=== PATIENT | male | born 1935 | race Caucasian/White ===

== ENCOUNTER 2018-09-22 16:07 | Emergency (ER) | payer MEDICARE, BC ==
[2018-09-22 16:28] VITALS: BP 197/92
--- NOTE | 2018-09-22 16:31 | UC ---
Head Injury HPI - HPI Summary HPI Summary: 83 yo male presents s/p fall. He tells me that he is very active and likes to run almost daily. Today he was running and he went to stop by planting his right foot in front of him. Says it right leg gave out and he fell forward onto the ground with his hands outstretched. He did hit his face against the ground. No LOC. Immediately got to his feet and returned home. He sustained abrasions to his hands, upper lip, and left cheek. He had moderate pain at the time, but says he's feeling better now. He has not taken anything OTC for his pain and says that he does not like to take medications. He denies headache, dizziness, pain with eye movement, abdominal pain, n/v, or weakness. - History Of Current Complaint Chief Complaint: UCTrauma Stated Complaint: INJURY FALL Time Seen by Provider: 09/22/18 16:20 Hx Obtained From: Patient Onset/Duration: Sudden Onset Severity Currently: Mild Severity Initially: Moderate Pain Intensity: 6 Pain Scale Used: 0-10 Numeric - Allergies/Home Medications Allergies/Adverse Reactions: Allergies Allergy/AdvReac Type Severity Reaction Status Date / Time No Known Allergies Allergy Verified 09/22/18 16:28 Home Medications: Home Medications NK [No Home Medications Reported] 09/22/18 [History Confirmed 09/22/18] PMH/Surg Hx/FS Hx/Imm Hx Cardiovascular History: Hypertension - Surgical History Surgical History: Yes Surgery Procedure, Year, and Place: right hip - Family History Known Family History: Positive: Hypertension, Other - no family history related to present concern. - Social History Lives: With Family Alcohol Use: Occasionally Substance Use Type: None Smoking Status (MU): Never Smoked Tobacco - Immunization History Most Recent Influenza Vaccination: None Most Recent Tetanus Shot: UTD Most Recent Pneumonia Vaccination: None Review of Systems All Other Systems Reviewed And Are Negative: Yes Constitutional: Positive: Negative Skin: Positive: Other - Abrasions Eyes: Positive: Negative Respiratory: Positive: Negative Cardiovascular: Positive: Negative Gastrointestinal: Positive: Negative Neurovascular: Positive: Negative Neurological: Positive: Negative Psychological: Positive: Negative Physical Exam - Summary Physical Exam Summary: GENERAL: NAD. WDWN. No pain distress. SKIN: Right hand: Superficial abrasion to 3rd and 4th finger pads. Left hand: superficial abrasion to dorsal and volar hand. Face: Upper lip with superficial abrasion and moderate edema. No laceration or tooth fracture. Left maxillary with mild edema and superficial abrasion. Mild TTP. HEENT: Head: No raccoon eyes or battles sign. Eyes: PERRLA. EOM intact and without pain. Ears: Hearing grossly normal. TMs intact, no bulging, erythema, or edema. No hemotympanum Nose: Nasal mucosa pink and moist. NTTP maxillary and frontal sinus. Throat: Posterior oropharynx without exudates, erythema, or tonsillar enlargement. Uvula midline. NECK: Supple. Nontender. FROM CHEST: CTAB. No r/r/w. No accessory muscle use. Breathing comfortably and in no distress. CV: RRR. Without m/r/g. Pulses intact. Brisk cap refill. MSK: FROM in B/L UEs and LEs with symmetric strength. NEURO: A&Ox3. 3 word recall, remote, recent memory, ability to follow 2-step directions, and attention intact. CN: II: Peripheral santiago intact. Vision normal. III, IV, : EOMI. No nystagmus. PERRLA. V: Sensations intact and symmetric. Opens mouth and clenches teeth. VII: No facial asymmetry. Forehead wrinkles. Grins, shuts eyes, frowns, puffs cheeks. VIII: Hearing intact to finger rub. IX, X: Swallows and coughs. Uvula midline. XI: Shrugs shoulders. Turns head against resistance. XII: No tongue deviation Yfyoca-me-twkg are intact. Gait with normal base. Romberg: maintains balance, no pronator drift. Normal speech. No facial drooping. PSYCH: Age appropriate behavior. Triage Information Reviewed: Yes Vital Signs: Initial Vital Signs Temp 98.9 F 09/22/18 16:20 Pulse 63 09/22/18 16:20 Resp 16 09/22/18 16:20 BP 197/92 09/22/18 16:20 Pulse Ox 96 09/22/18 16:20 Vital Signs Reviewed: Yes Head Injury Course/Dx - Course Course Of Treatment: Discussed obtaining CT maxillofacial today given that this is the only area of any significant pain, but pt declined. He does not want any imaging and request to have his wounds cleaned and bandaged. He did sustain a mild head injury, however his neuro exam is WNL and he is not on any blood thinners at this time. His wounds were cleaned and bandaged with neosporin and band-aids. I advised him to ice the areas of swelling/abrasions/pain and take tylenol for discomfort. If he develops a headache, dizziness, weakness, nausea, or vomiting to go to the ED. Pt voiced understanding - Differential Dx/Diagnosis Provider Diagnosis: Fall, Contusion of face, Multiple abrasions Discharge - Sign-Out/Discharge Documenting (check all that apply): Patient Departure All imaging exams completed and their final reports reviewed: No Studies - Discharge Plan Condition: Stable Disposition: HOME Patient Education Materials: Abrasion (ED), Hematoma (ED) Referrals: Elias Cristobal MD [Primary Care Provider] - Additional Instructions: If you develop a fever, shortness of breath, chest pain, new or worsening symptoms - please call your PCP or go to the ED. Your blood pressure was high at todays visit. Please see your primary provider within 4 weeks for recheck and re-evaluation. 1) Rest and apply ice to your areas of pain and swelling 2) You declined imaging of your areas of injury today - if your symptoms worsen please go to the ER - Billing Disposition and Condition Condition: STABLE Disposition: Home - Attestation Statements Provider Attestation: I was available for consult. This patient was seen by the JOYA. The patient was not presented to , seen by or examined by nd -Janelle Tay MD
== END 2018-09-22 17:23 | disposition home or self-care (01) ==
LOC: UCEAST 16:07
DX: S00.83XA Contusion of other part of head, initial encounter (principal); S60.414A Abrasion of right ring finger, initial encounter; S60.417A Abrasion of left little finger, initial encounter; S60.512A Abrasion of left hand, initial encounter; S00.511A Abrasion of lip, initial encounter; I10 Essential (primary) hypertension; W01.198A Fall on same level from slipping, tripping and stumbling with subsequent striking against other object, initial encounter; Y93.02 Activity, running; Y92.9 Unspecified place or not applicable
CPT/HCPCS: 99212; G0463

== ENCOUNTER 2019-04-08 09:59 | Inpatient (IN) | payer MEDICARE, BC ==
--- NOTE | 2019-04-08 10:27 | ED ---
Neurological HPI - HPI Summary HPI Summary: Time seen by provider: 1015. The patient is an 83 y/o M presenting to [facility] accompanied by with a chief complaint of weakness in the bilateral lower extremities as he woke up at 0730. He reports he was trying to get out of bed but had difficulty ambulating, and he had to use a walker, which is abnormal for him. He denies any headaches, chest pain, shortness of breath, or dizziness. Currently, his symptoms are rated 0/10 in severity. He notes that he does not have a history of high blood pressure, although in triage his pressure is hypertensive; he states it has been lower more recently. PMHx: right hip surgery. FHx: HTN, cardiac disease, MS fatal age 58, stroke (brother, grandfather). Former smoker, no EtOH, no substance use. Medications reviewed. Allergies noted. - History of Current Complaint Chief Complaint: EDWeakness Stated Complaint: WALKING DIFFICULTY WEAKNESS PER Time Seen by Provider: 04/08/19 10:15 Hx Obtained From: Patient Onset/Duration: Started hours ago - 0730 this morning, Still Present Timing: Sudden Onset Onset Severity: Moderate Current Severity: Moderate Neurological Deficit Location: RLE, LLE Pain Intensity: 0 Pain Scale Used: 0-10 Numeric Character: Weak - Allergy/Home Medications Allergies/Adverse Reactions: Allergies Allergy/AdvReac Type Severity Reaction Status Date / Time No Known Allergies Allergy Verified 04/08/19 10:11 PMH/Surg Hx/FS Hx/Imm Hx Endocrine/Hematology History: Denies: Hx Diabetes Cardiovascular History: Denies: Hx Hypercholesterolemia, Hx Hypertension - Surgical History Surgical History: Yes Surgery Procedure, Year, and Place: right hip Infectious Disease History: No Infectious Disease History: Denies: History Other Infectious Disease, Traveled Outside the [place] in Last 30 Days - Family History Known Family History: Positive: Cardiac Disease - MS grandfather age 58, Hypertension, Other - no family history related to present concern. - Social History Alcohol Use: Occasionally Hx Substance Use: No Substance Use Type: Reports: None Hx Tobacco Use: Yes Smoking Status (MU): Former Smoker Review of Systems Negative: Chest Pain Negative: Shortness Of Breath Neurological: Other - Negative: dizziness. Positive: Weakness - in bilateral legs. Negative: Headache All Other Systems Reviewed And Are Negative: Yes Physical Exam - Summary Physical Exam Summary: VITAL SIGNS: Reviewed. GENERAL: Patient is a well-developed and nourished elderly male who is lying comfortable in the stretcher. Patient is not in any acute respiratory distress. HEAD AND FACE: No signs of trauma. No ecchymosis, hematomas or skull depressions. No sinus tenderness. EYES: PERRLA, EOMI x 2, No injected conjunctiva, no nystagmus. EARS: Hearing grossly intact. Ear canals and tympanic membranes are within normal limits. MOUTH: Oropharynx within normal limits. NECK: Supple, trachea is midline, no adenopathy, no JVD, no carotid bruit, no c- spine tenderness, neck with full ROM. CHEST: Symmetric, no tenderness at palpation. LUNGS: Clear to auscultation bilaterally. No wheezing or crackles. CVS: Regular rate and rhythm, S1 and S2 present, no murmurs or gallops appreciated. ABDOMEN: Soft, non-tender. No signs of distention. No rebound, no guarding, and no masses palpated. Bowel sounds are normal. EXTREMITIES: FROM in all major joints, no edema, no cyanosis or clubbing. NEURO: Alert and oriented x 3. Left lower extremity weakness. Decreased sensation in the left leg. Speech is normal and follows commands. NIH: 2 (see scale). SKIN: Dry and warm. GCS: 15. Triage Information Reviewed: Yes Vital Signs On Initial Exam: Initial Vitals Temp Pulse Resp BP Pulse Ox 98.4 F 59 18 195/87 97 04/08/19 10:02 04/08/19 10:02 04/08/19 10:02 04/08/19 10:02 04/08/19 10:02 Vital Signs Reviewed: Yes - Rico Coma Scale Best Eye Response: 4 - Spontaneous Best Motor Response: 6 - Obeys Commands Best Verbal Response: 5 - Oriented Coma Scale Total: 15 Procedures - Sedation Patient Received Moderate/Deep Sedation with Procedure: No Diagnostics - Vital Signs Vital Signs Temp Pulse Resp BP Pulse Ox 04/08/19 10:02 98.4 F 59 18 195/87 97 - Laboratory Result Diagrams: 04/08/19 10:34 04/08/19 10:34 Lab Statement: Any lab studies that have been ordered have been reviewed, and results considered in the medical decision making process. - Radiology Brain MRI Radiology Interpretation Completed By: Radiologist Summary of Radiographic Findings: Impression: 1. There are two small late acute to early subacute white matter infarcts in the right parietal lobe. One is near the cortical spinal tract. The other is in the periatrial white matter. There is no associated mass effect or midline shift. 2. Moderate chronic small vessel slightly disease is likely. 3. Mild cerebral volume loss. ED physician has reviewed this report. Cervical Spine MRI Radiology Interpretation Completed By: Radiologist Summary of Radiographic Findings: Impression: 1. The cervical spinal cord is normal in signal and volume. 2. Varying degrees of multilevel spondylosis results in mild to moderate spinal canal stenosis at C2-C3 and multilevel neural foraminal stenosis as above. 3. There is osseous fusion of the C3-C4 vertebral bodies and facets. ED physician has reviewed this report. - CT Brain CT CT Interpretation Completed By: Radiologist Summary of CT Findings: Impression: No acute intracranial pathology. Chronic small vessel ischemic change. ED physician has reviewed this report. - EKG 1046 Cardiac Rate: Bradycardia - 59 bpm EKG Rhythm: Sinus Bradycardia EKG Comparison: No Significant Change - Similar to previous on 06/23/16. Summary of EKG Findings: EKG at 1046 reveals sinus bradycardia at [address] elevations. ED physician has reviewed and interpreted this EKG. NIH Scale - NIH Scale Level of Consciousness: Alert/Keenly Responsive Ask Patient the Month and His/Her Age: Both Correct Ask Pt to Open/Close Eyes and Shorer/Release Non-Paretic Hand: Both Correctly Best Gaze (Only Horizontal Eye Movement): Normal Visual Field Testing: No Visual Loss Facial Paresis-Pt to Smile & Close Eyes or Grimace Symmetry: Normal/Symmetrical Motor Function - Right Arm: No Drift-Holds 10 Seconds Motor Function - Left Arm: No Drift-Holds 10 Seconds Motor Function - Right Leg: No Drift-Holds 10 Seconds Motor Function - Left Leg: Drifts LT 10 seconds Limb Ataxia-Must be out of Proportion to Weakness Present: Absent Sensory (Use Pinprick to Test Arms/Legs/Trunk/Face): Pinprick Less on Affected Best Language (Describe Picture, Name Items): No Aphasia Dysarthria (Read Several Words): Normal Extinction and Inattention: No Abnormality Total Score: 2 Re-Evaluation - Re-Evaluation First Eval Re-Evaluation Time: 12:45 Change: Unchanged Comment: We discussed all results and plan for admission. Course/Dx - Course Assessment/Plan: Patient is an 83 y/o M with chief complaint of waking up with weakness in the bilateral lower extremities this morning at 0730 without any accompanying chest pain, shortness of breath, headache, or dizziness. Blood work without any significant abnormality. Urinalysis is negative for UTI. Head CT impression: No acute pathology. Since the patient woke up with the symptoms, the patient is not a candidate for TPA. I discussed my physical exam and findings with Dr. Kelly from the neurology services, and he came and assessed the patient. Dr. Kelly recommends for the patient to be admitted to the hospitalist and to get an MRI of the brain and MRI of the C-spine. At this time , I discussed my physical exam and findings with Dr. Roche from the hospitalist services who accepted the patient for admission. Patient is hemodynamically stable alert oriented 3. - Diagnoses Provider Diagnoses: CVA (cerebral vascular accident) - Physician Notifications Discussed Care Of Patient With: Ricci Kelly - neurology Time Discussed With Above Provider: 11:00 Instructed by Provider To: Other - I discussed the patient's case with Dr. Kelly, and he will come assess the patient in the ED. At 1218, Dr. Kelly spoke with the patient, and he reports that the patient is walking well. He recommends an MRI and admission. I discussed the patients case with Dr. Roche , who accepts the patient for admission at 1242. Discharge ED - Sign-Out/Discharge Documenting (check all that apply): Patient Departure - Patient accepted for admission by Dr. Roche. - Discharge Plan Condition: Stable Disposition: ADMITTED TO [facility] - Billing Disposition and Condition Condition: STABLE Disposition: Admitted to [facility] - Attestation Statements Document Initiated by Stephani: Yes Documenting Scribe: Patricia Gongora Provider For Whom Stephani is Documenting (Include Credential): Dr. Nahum Branch MD Scribe Attestation: Patricia Dixon scribed for Dr. Nahum Branch MD on 04/08/19 at 1852. Scribe Documentation Reviewed: Yes Provider Attestation: The documentation as recorded by the Patricia arizmendi accurately reflects the service I personally performed and the decisions made by me, Dr. Nahum Branch MD Status of Scribe Document: Ready
[2019-04-08 10:50] LABS: ABS Lymphocytes 1.4 10^3/ul (1.0-4.8); ABS Monocytes 0.4 10^3/ul (0-0.8); ABS Neutrophils 3.4 10^3/ul (1.5-7.7); Eosinophil % 0.8 %; Hematocrit 44 % (42-52); Hemoglobin 14.9 g/dL (14.0-18.0); Lymphocyte % 25.7 %; Mean Corpuscular HGB Conc 34 g/dL (31-36); Mean Corpuscular Hemoglobin 34 pg (27-31); Mean Corpuscular Volume 99 fL (80-94); Mean Platelet Volume 8.2 fL (7.4-10.4); Nucleated Red Blood Cells % 0.1; Platelet Count 238 10^3/uL (150-450); Red Blood Count 4.41 10^6 /uL (4.18-5.48); Red Cell Distribution Width 13 % (10-15); White Blood Count 5.3 10^3/uL (3.5-10.8)
[2019-04-08 11:00] LABS: Urine Appearance Clear; Urine Bilirubin Negative (Negative); Urine Blood Negative (Negative); Urine Color Straw; Urine Glucose Negative (Negative); Urine Ketones Negative (Negative); Urine Nitrite Negative (Negative); Urine Protein Negative (Negative); Urine Specific Gravity 1.008 (1.010-1.030); Urine Urobilinogen Negative (Negative)
[2019-04-08 11:02] LABS: Albumin/Globulin Ratio 1.6 (1-3); BUN/Creatinine Ratio 13.3 (8-20); Calcium 9.1 mg/dL (8.6-10.3); EGFR African American 119.8 (>60); Globulin 2.5 g/dL (2-4); HDL Cholesterol 60.7 mg/dL; Total Bilirubin 0.8 mg/dL (0.2-1.0); Total Protein 6.5 g/dL (6.4-8.9)
[2019-04-08 11:04] LABS: Troponin I 0.01 ng/mL (<0.04)
[2019-04-08] MEDS ORDERED: hydrALAZINE IV* 20 MG/ML VIAL IV SLOW PU ONE (11:05)
[2019-04-08 13:28] LABS: Folate 12.98 ng/mL (>3.99)
--- NOTE | 2019-04-08 15:00 | HP ---
History of Present Illness - History of Present Illness Reason for Visit: Bilateral Lower limb weakness History of Present Illness: This is a 83 y/o M otherwise healthy presented with Bilateral lower extremity weakness that started this morning. he woke up around 7:00 AM in the morning and noticed that he was not able to walk and had to use walker to walk around the house. He had no symptoms when he went to sleep yesterday night.Weakness was acute, constant, nonprogressive and with no radiation and numbness and tingling. He denies history of loss of consciousness, facial droop, slurring speech or drooling of saliva. He does report that his gait was unsteady. He further adds that he had fell twice in last 6 months when tripped on the floor. He is also noticing imbalance for the last 2-3 years. He reports of nocturia; goes to bathroom 2-3 times a night and adds that he drinks water alot, even while waking up at night. There is no burning micturition, dribbling or hesitancy. Patient denies recent upper respiratory tract infection, diarrhea, fever, nausea, vomiting, visual changes, syncope or tick bite. He has normal appetite with no weight changes and normal sleep habit. ER Course: In hospital, his weakness has subsided. His BP was in the range of 180-200/80- 100 mm Hg. His heart rate was in the range of 54-70 bpm. In ED, there was some sensory and motor weakness in his left leg. Blood work up was normal. Brain CT showed Chronic small vessel ischemic change with no acute intracranial abnormality. His ECG showed sinus bradycardia with borderline FL prolongation. - Past Medical History Past Medical History: 1. Scoliosis 2. Right Femoral Neck fracture No history of Hypertension, Diabetes, Heart disease, Hyperlipidemia or stroke. He doesnot use medication at home except ocassional Ibuprofen for his hip pain. - Past Surgical History Past Surgical History: 1. Right Hip Surgery with placement of cannulated screws 3 years ago - Past Family History Past Family History: His father had a Heart Disease and at age of 70 years. His paternal uncle at 58 yrs because of [place]. Grandfather because of heart disease. Mother at the age of 97 and had arthritis. His younger brother had small stroke when he was 75 years. he has 5 children and all of them are healthy. 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 He lives with his . He occasionally drinks wine; once in 3 months. He denies smoking and doesnot use recreational drugs. He has a living will. His HCP is his -Agatha Sims([phone]). Home phone number is [phone]. He doesnot have Primary care Physician at present. He is full code. - Health Maintenance Health Maintenance: Never had colonoscopy. Review of Systems - Review of Systems Genitourinary: Positive: Other - Nocturia Musculoskeletal: Positive: Neck Pain Neurological: Positive: Weakness - Medications/Allergies Allergies/Adverse Reactions: Allergies Allergy/AdvReac Type Severity Reaction Status Date / Time No Known Allergies Allergy Verified 04/08/19 10:11 Exam Vital Signs: Vital Signs (72 hours) 04/08/19 04/08/19 04/08/19 10:02 10:13 10:16 Temperature 98.4 F Pulse Rate 59 63 61 Respiratory 18 11 14 Rate Blood Pressure 195/87 196/113 (mmHg) O2 Sat by Pulse 97 97 96 Oximetry 04/08/19 04/08/19 04/08/19 10:17 10:31 10:37 Temperature Pulse Rate Respiratory 27 Rate Blood Pressure 194/110 200/80 (mmHg) O2 Sat by Pulse 96 Oximetry 04/08/19 04/08/19 04/08/19 11:00 11:40 12:00 Temperature Pulse Rate Respiratory 15 19 17 Rate Blood Pressure 183/102 (mmHg) O2 Sat by Pulse Oximetry 04/08/19 04/08/19 04/08/19 12:44 13:00 13:10 Temperature Pulse Rate 60 Respiratory 17 21 23 Rate Blood Pressure 162/83 161/92 (mmHg) O2 Sat by Pulse 96 Oximetry 04/08/19 04/08/19 04/08/19 13:40 14:00 14:10 Temperature Pulse Rate Respiratory 17 26 26 Rate Blood Pressure 161/93 160/87 (mmHg) O2 Sat by Pulse Oximetry Exam: Patient is lying in a bed with no acute distress. HEENT: Normocephalic and atraumatic. PERRLA. Sclera anicteric. EOM intact. Lungs: Normal respiratory rate. Clear vesicular sound heard with no added sound. Heart: Normal in rate and rhythm. S1/S2 heard with no murmur, rubs or gallop. Abdomen: Soft, nondistended and nontender. Normal bowel sound heard. Extremities: No edema, cyanosis and clubbing. Neuro: Alert, conscious and oriented. CN intact. Motor strength normal and sensation intact. Gait- limping. Assessment/Plan - Assessment/Plan Assessment: This is a pleasant 83 y/o M with no significant past medical history presented with acute onset of transient bilateral lower extremity weakness with no other associated symptom, concerning for CVA vs TIA, or spinal cord pathology. Plan: 1. Bilateral Lower Limb weakness: According to patient symptom, this could be due to due to spinal degenerative disease or peripheral neuropathy. We will do MRI of his spine. Other differentials include Brainstem Stroke(ordering MRI Brain), Undiagnosed Metastatic Cancer( his exposure to dioxin puts him on high risk for prostate cancer) or just dehydration. If MRI brain is normal then we will think about stopping his aspirin. Other possibilities include GBS, Tick Paralysis; although less likely. 2. Hypertension: His BP is in the range of 180/90mm Hg. He doesnot have PCP. So this could be undiagnosed Essential HTN or just stress induced, also would be present in a post stroke event, which is why we are electing for MRI. We will put him on Amlodipine for now. 3. DVT Prophylaxis: ON lovenox prophylactic dose. 4. Diet: Regular unrestricted diet. 5. Full Code Attestation Documenting Resident: Arlene Mckeon Supervising Physician: Kimmie Rojas Attending/Supervising Physician Comment: Agree with resident H/P Attending addendum 83M, healthy at baseline, who presented with acute onset weakness upon waking up this morning, associated w dizziness, symptoms resolved by the time he appeared in ED, though VS notable for HTN. Labs normal, imaging ultimately did reveal a subacute CVA, though luckily no residual defecit, he will be admitted to hospital wiht following problems #CVA: late acute, c/w "wake up stroke" type presentation -Out of window for TPA (4.5 hr) -Risk stratify w 2/2 prevention, Asa/Plavix for 30 days, shared decision making around statin -Echo w bubble, discuss carotid duplex vs MRA -PT/OT #HTN: Permissive HTN with systolic BPs 160s a goal #DVT lovenox #Code Full Attestation: This service has been performed in part by a resident under the direction of a teaching physician.I, Kimmie Rojas, performed the service, or was physically present during the critical, or marcelino portions of the service, furnished by the resident. I participated in the management of the patient.
--- NOTE | 2019-04-08 15:25 | CONS ---
CONSULTATION REPORT: DATE OF CONSULT: 04/08/19 PATIENT OF: Dr. Branch and Dr. Cristobal. HISTORY OF PRESENT ILLNESS: This is an 83-year-old right-handed man who I am seeing for an acute gait disturbance. He has been in good general health other than breaking his right hip with a fall almost 3 years ago. He notes that over the past year or so, he has had some progressive balance issues and uses a cane currently so he does not fall. He has fallen 2 to 3 times in the past year, the last about a month ago. He denies any numbness in his feet, but feels that he has a sensation of wooziness or off balance and he has no vertigo. He went to bed in his usual state of good health last night. He slept on his belly, which is unusual for him and he woke up with some neck pain and he had weakness in both legs without any numbness or bladder changes. No weakness in the arms. No visual symptoms, and he said he could almost not walk. It is unclear how severe this was. His walking was not tested when he first got into the emergency room and he feels that within hours it is back to essentially normal and he has no numbness. He has no headache, chest pain, shortness of breath. As discussed, he is on no meds. He is in good health and he had his hip surgery. SOCIAL HISTORY: He is a former smoker. He is and lives with his . REVIEW OF SYSTEMS: Negative in all 14 spheres PHYSICAL EXAM: Blood pressure 183/102, pulse 63, respirations 17, temperature 98.4. He is alert and oriented with normal speech and comprehension. Cranial nerves II through XII were intact. Fundi were benign. Motor exam revealed normal tone and strength with some atrophy and intrinsic hand muscles in both hands. He had an unsteady Romberg and his gait is slightly wide based. His left foot was externally rotated when he walked, but apparently this is how he walks. He did not appear in danger of falling with a walker and both he and his said that his walking was unchanged. His reflexes were trace at the ankles , 2+ at the knees, 1 in the arms. He had decreased vibration sense in his feet. Toes were downgoing. Chest: Clear. Cardiovascular: Regular rate and rhythm. Abdomen is soft. DIAGNOSTIC STUDIES/LAB DATA: CT of his head showed some diffuse hypodensities, which most likely represent small vessel ischemic disease and this was how the radiologist read it as well. Labs include normal CBC other than an MCV of 99. Normal INR. Normal chemistries. His B12 and folate pending. LDL is 108. IMPRESSION AND PLAN: I discussed with Mr. Sims and his that he most likely has a longstanding slowly progressive peripheral neuropathy, which caused him to use a cane and have some balance difficulties. In addition, he has had the acute problem that brought him to the ER today. He firmly says that it was both legs and he appears to be a good historian. Dr. Branch detected weakness in his left leg, which I did not see and it is resolved at this point. He is not a candidate for tPA because he is back to his baseline and it was a wake-up stroke and it passed. He is outside of any window at this point. I think that the acute event may be more likely to be from a cervical myelopathy from sleeping on his belly. He has scoliosis and has intrinsic muscle wasting in his hands and possibly some brisk reflexes in his legs, and so we are getting an MRI scan of his C-spine. It is possible that this could have been an acute stroke that has resolved. This would be important to know as well and so we are getting an MRI scan of his brain. I think that this is less likely of the 2 possibilities since he firmly states that both legs were affected by this thing, but at this point it is hard to be sure which of these 2 possibilities occurred. He will be recommended B12, folate, hemoglobin A1c, thyroid, and we may be getting nerve conduction studies at some point as well. Thank you for sharing his case. [id number]/[facility] #: [id number] KETURAH
[2019-04-08] MEDS ORDERED: Clopidogrel TAB* 300 MG PO ONE (17:59)
[2019-04-08] MEDS ORDERED: Clopidogrel TAB* 75 MG PO SCH (18:00)
[2019-04-08] MEDS: Aspirin 81 mg CHEW TAB* 81 MG TAB.CHEW PO SCH (18:21)
[2019-04-08] MEDS: amLODIPine TAB* 5 MG PO SCH (18:22)
[2019-04-08] MEDS: Enoxaparin(*) 40 MG/0.4 ML SYR SUBCUT SCH (18:24)
--- NOTE | 2019-04-09 06:57 | PN ---
Subjective Date of Service: 04/09/19 Interval History: HD 2 on 04/09/2019 83 y/o M with no significant PMH presented with acute transient bilateral lower extremity weakness with unsteady gait. Found to have Stroke. On aspirin and Plavix No acute overnight events pt declined lovenox vitals stable No complain at present AMbulating well Objective Active Medications: Amlodipine Besylate (Norvasc Tab*) 10 mg PO DAILY [facility] Last Admin: 04/08/19 18:22 Dose: 10 mg Aspirin (Aspirin 81 Mg Chew Tab*) 81 mg PO DAILY [facility] Last Admin: 04/08/19 18:21 Dose: 81 mg Clopidogrel Bisulfate (Plavix Tab*) 75 mg PO DAILY [facility] Enoxaparin Sodium (Lovenox(*)) 40 mg SUBCUT Q24H [facility] Last Admin: 04/08/19 18:24 Dose: Not Given Vital Signs - 8 hr 04/08/19 04/09/19 23:45 03:31 Temperature 97.7 F 97.8 F Pulse Rate 61 59 Respiratory 20 20 Rate Blood Pressure 149/77 144/87 (mmHg) O2 Sat by Pulse 98 99 Oximetry Oxygen Devices in Use Now: None Exam: Patient is lying on a bed with no acute distress HEENT: Normocephalic and atraumatic Lungs: CLear with no added sound Heart: S1/S2 heard with no murmur Abdomen: Soft, nondistended and nontender. Normal BS heard Extremities: No swelling Neuro: alert, oriented and conscious. No focal deficit noted. Result Diagrams: 04/08/19 10:34 04/08/19 10:34 Assess/Plan/Problems-Billing Assessment: 83 y/o M with no significant PMH presents with acute transient Bilateral lower extremity weakness with no numbness and tingling. Found to have Stroke and Hypertension. On aspirin and plavix - Patient Problems (1) Stroke Current Visit: Yes Status: Acute Code(s): I63.9 - CEREBRAL INFARCTION, UNSPECIFIED SNOMED Code(s): 292621435 Comment: Acute transient bilateral lower extremity weakness Found to have late acute stroke on MRI with chronic vessel change Started on aspirin and plavix Carotid US negative for stenosis awaiting Echo results; If normal can be dc home with aspirin and plavix for 30 days and then plavix thereafter. (2) Hypertension Current Visit: No Status: Acute Code(s): I10 - ESSENTIAL (PRIMARY) HYPERTENSION SNOMED Code(s): 67388020 Comment: On presentation his BP was in the range of 180/90 mm Hg; still on higher side; fluctuating On amlodipine; patient reluctant about starting medication. Could be undiagnosed HTN, Post stroke HTN or due to stress. Needs follow up as an outpatient (3) DVT prophylaxis Current Visit: No Status: Acute Code(s): DKQ3576 - SNOMED Code(s): 975125598 Comment: Arsenio. (4) Full code status Current Visit: No Status: Acute Code(s): Z78.9 - OTHER SPECIFIED HEALTH STATUS SNOMED Code(s): 262899871 Status and Disposition: Inpatient Attending: Kimmie Rojas Attestation Documenting Resident: Arlene Mckeon Supervising Physician: Kimmie Rojas Attestation: This service has been performed in part by a resident under the direction of a teaching physician.I, Kimmie Rojas, performed the service, or was physically present during the critical, or marcelino portions of the service, furnished by the resident. I participated in the management of the patient.
[2019-04-09] MEDS ORDERED: Influenza VAC *QUAD* 2019-20* 0.5 ML SYRINGE IM ONE (09:00)
[2019-04-09] MEDS: Aspirin 81 mg CHEW TAB* 81 MG TAB.CHEW PO SCH (09:03)
[2019-04-09] MEDS: amLODIPine TAB* 5 MG PO SCH (09:03)
--- NOTE | 2019-04-09 15:32 | DS ---
CC: Mg Manzanares DO DISCHARGE SUMMARY: DATE OF ADMISSION: 04/08/19 DATE OF DISCHARGE: 04/09/19 PRIMARY CARE PROVIDER: Mg Manzanares DO, who is following up with the patient on 04/14/19 at 2:45 p.m. PRIMARY DIAGNOSES: Late acute ischemic stroke with no residual deficits, as well as hypertension, new onset presumed to be post stroke. SECONDARY DIAGNOSIS: None. 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 MEDICATIONS AT THE TIME OF DISCHARGE: 1. Aspirin 81 mg p.o. daily. 2. Clopidogrel 75 mg p.o. daily for an additional 30 days status post discharge. 3. Amlodipine 10 mg p.o. daily until followup with primary care provider and further titration needs to be done this time. Medications change during this hospitalization include the addition of all 3. The patient states that he was intermittently taking aspirin prior to this, although not daily and generally was not taking any medications on a regular basis prior to admission. HISTORY OF PRESENT ILLNESS AND HOSPITAL COURSE: This is an 83-year-old, quite healthy gentleman who presented to the emergency room on 04/08/19 after waking up the morning of 04/08/19 with some dizziness, balance problems, and mild confusion. The patient reports that he had been lying on his stomach and he went to try to stand. He felt that "his legs weren't working" correctly and he needed a walker. He had the sensation of being unbalanced, but denies vertigo symptoms. He had no numbness, tingling, or sensory deficits, although he does report that he has had longstanding mild gait imbalances with some neuropathy in the past. He decided to present to the emergency room ultimately because he felt off. In the emergency room, vital signs were notable for significant hypertension with systolics to 195 with diastolics over 85. Otherwise, pulse normal sinus in the 60s with no signs of ischemia. Respiratory rate is 18, oxygen saturation is 97% on room air. He is afebrile. He had no complaints of weakness or deficits when he arrived to the emergency room stating that they had already resolved prior to his admission, but they overall had lasted for about [address] brain of his head was done, which showed chronic microvascular changes, but no acute intracranial abnormalities. Labs were done , which were wholly unremarkable including B12, TSH, glucose which was 92, PSA and folate all normal, although cholesterol was 108, total cholesterol 182. Neurology did see the patient who felt that his symptoms were concerning enough to possibly represent a cerebellar event, TIA or ischemic stroke and thus he recommended for the patient to be kept under observation and to have MRI of both brain as well as spine given his lower extremity weakness that was bilateral in nature and to rule out any spinal cord pathology. His hospital course by problems as follows: 1. Transient bilateral weakness and confusion. An MRI brain did ultimately show an acute late 2 small white matter infarcts in the right parietal lobe, one near the cortical spinal tract with no associated mass effect or midline shift. He also demonstrated again chronic small vessel disease and mild cerebral volume loss. MRI of cervical spine showed diffuse DJD and central canal stenosis, but the cervical spinal cord was normal in terms of signal and volume. Given his presenting symptoms, it is possible that the patient had some weakness globally from his acute parietal stroke which likely occurred the evening of 04/07/19 according to Neurology which exacerbated his preexisting spinal pathology with his known DJD and age-related changes. His symptoms have all got resolved. His neuro exam on arrival and throughout his stay during hospitalization is wholly unremarkable with 5/5 strength. He has mild guarded gait, but no focal deficits. This was explained to the patient that this was an acute ischemic stroke with luckily no residual deficits, and in terms of this , he should be optimized on secondary prevention with aspirin and Plavix for 30 days, as well as blood pressure control as per next problem. From other stroke workup, the patient did have a carotid duplex which showed no signs of carotid stenosis, was monitored on telemerey for 24 hours without evidence of afib, and an echocardiogram which showed a PFO. Because of the PFO, we elected to order venous dopplers to ensure no venous source of clot. Most likely, his ischemic stroke is secondary to plaque burden from age-related changes and likely he has no notable residual deficits. 2. Hypertension. The patient presented quite hypertensive which in retrospect was likely all post stroke hypertension. In an effort to perfuse, we allowed for permissive hypertension with a goal of systolic 160s given recent stroke and did initiate amlodipine to bring his systolic blood pressure from 190 to 160 where it remained nicely with amlodipine 10 mg. The patient feels strongly not to take antihypertensives, but does understand that in the post stroke window he will have physiologic hypertension which should be treated to a goal of 150s to 160s which amlodipine 10 mg ultimately was achieving. He is discharged on amlodipine 10 mg and instructed to continue until he follows with his primary care provider where blood pressure can be measured. If patient is found to be normotensive, it is reasonable to titrate down and even off in the future as the patient reports that he has no history of essential hypertension, although he reports he has not been seeing regularly primary care provider since the early 2015. On day of discharge, the patient is ambulating, tolerating diet, voiding freely , tolerating his medications. LABS AND STUDIES DONE DURING THIS HOSPITALIZATION: CBC which shows white blood cell count of 5.3, hemoglobin 14.9, hematocrit 44 and platelets 238. A CMP which shows sodium 136, potassium 4, chloride 103, carbon-dioxide 29, anion gap 4, BUN 10, creatinine 0.75, glucose 92, AST 22, ALT 10, alk phos 64. LDL cholesterol 108, total cholesterol 182, HDL 60, triglycerides 69, vitamin B12 of 420, PSA 1, folate 12.98. Urinalysis unremarkable. Imaging includes: Brain CT which showed no acute bleed. Brain MRI which showed the small 2 right late acute white matter infarcts of the right parietal lobe. Cervical spine MRI which showed diffuse DJD and mild stenosis without any effect on central canal. EKG showed normal sinus rhythm with MO mildly prolonged at 0.212. Carotid Doppler showed scattered atherosclerotic plaque bilaterally, but with no significant blocking plaque. Echocardiogram was performed, EF 60%, trace aortic stenosis, and a PFO was noted (thought to be incidental given negative venous doppler) Bilateral venous doppler negative for blood clot ITEMS TO FOLLOW UP ON STATUS POST DISCHARGE: 1) Secondary prevention status post ischemic stroke. The patient and his family including his son who is family medicine doctor was counseled on this case and we recommend aspirin and Plavix for 30 days and then monotherapy with probably Plavix alone if the patient was in fact taking aspirin in stroke through aspirin-alone therapy. You could consider following up with Neurology if patient allows, and we have placed a referral for Dr. Ricci Kelly who saw the patient in hospital to further discuss his neuropathy long standing. While he did not have evidence of any atrial fibrillation on brief monitoring he could be offered longer term holter although he declined this at this time. 2) Hypertension: Furthermore, he had significant hypertension during this hospitalization and needed amlodipine to keep blood pressure at goal of 160s. This may fade in intensity as he comes out of the post- stroke window and we recommend that he follows closely with primary care to manage his blood pressure goals in the setting of recent stroke to prevent further poor outcome. TIME SPENT: Forty five minutes was spent planning on this discharge with over half of that spent directly at the bedside of the patient providing direct patient care. This summarization is a number complex data points that have happened during the course of several days. If there are any questions about the specifics, please do not hesitate to reach out and contact me directly. My cellphone is . DISPOSITION AT THE TIME OF DISCHARGE: Stable to be discharged to home. [id number]/[facility] #: [id number] KETURAH
[2019-04-09] MEDS: Enoxaparin(*) 40 MG/0.4 ML SYR SUBCUT SCH (15:36)
[2019-04-09 15:48] VITALS: BP 145/85
--- NOTE | 2019-04-09 15:59 | ECHO ---
*[facility]* [place] [address] Fax #: [phone] Transthoracic Echocardiogram Patient: Abiola Sims : 1935 Study Date: 04/09/2019 Age: 83 Gender: M HR: 60 bpm Height: 69 in /175.3 cm BSA: 1.8 m^2 Weight: 144.7 lb /65.8 kg BMI: 21.4 kg/m^2 *Tactical Response Group Officer: * Charis Weiss RD *Referring Physician: * Kimmie RojasReading Physician: * Dieter Florentino MD Indications: TIA. History: No known cardiac history. Conclusions Summary: - Left ventricle: Systolic function is normal. The estimated ejection fraction is 60-65%. - Right ventricle: The cavity size is mildly dilated. - Atrial septum: A PFO is demonstrated by color Doppler and agitated saline contrast. - Mitral valve: There is trace to mild regurgitation. - Aortic valve: The findings are consistent with borderline stenosis. There is trace regurgitation. - Tricuspid valve: There is mild regurgitation. - No previous echocardiogram available. Study data: Transthoracic echocardiogram. Procedure: Transthoracic echocardiography was performed. Image quality was fair. The study was technically limited due to poor acoustic window availability. A bubble study was performed. Complete 2D, spectral Doppler, and color flow Doppler. Location: Bedside. Patient status: Inpatient. Patient room number: 452. Rhythm: Normal sinus rhythm. Findings Left ventricle: The cavity size is normal. There is mild concentric hypertrophy. Systolic function is normal. The estimated ejection fraction is 60-65%. Wall motion is normal; there are no regional wall motion abnormalities. Doppler parameters are consistent with abnormal left ventricular relaxation (grade 1 diastolic dysfunction). Right ventricle: The cavity size is mildly dilated. The moderator band is in a normal position. Systolic function is normal. Left atrium: The atrium is at the upper limits of normal in size. Right atrium: The atrium is normal in size. Atrial septum: Bubble study image 72, with saline flush at beat 4. A PFO is demonstrated by color Doppler and agitated saline contrast. Mitral valve: The leaflets are mildly thickened. There is no evidence of stenosis. There is trace to mild regurgitation. Aortic valve: The valve is trileaflet. The leaflets are mildly thickened. The findings are consistent with borderline stenosis. There is trace regurgitation. Tricuspid valve: The leaflets are normal thickness. There is no evidence of stenosis. There is mild regurgitation. Pulmonic valve: Poorly visualized. There is no evidence of stenosis. Aorta: Aortic root: The aortic root is upper normal in size. Ascending aorta: The ascending aorta is upper normal in size. Aortic arch: The aortic arch is appears normal. Pericardium: There is no significant pericardial effusion. Pulmonary arteries: Poorly visualized. Systolic pressure is within the normal range. Systemic veins: Inferior vena cava: The vessel is normal in size. There is (>= 50%) respiratory change in the IVC dimension. Measurements Left ventricle Value Ref Aortic valve Value Ref GLORIA, LAX 4.2 cm 4.2 - 5.8 Tiesha diam, ED 1.9 cm ----- ESD, LAX 2.8 cm 2.5 - 4.0 Peak v, S 1.76 m/sec ----- FS, LAX 32 % 25 - 43 VTI, S 38.9 cm ----- PW, ED, LAX (H) 1.1 cm 0.6 - 1.0 Mean grad, S 6.0 mm Hg ----- FS 32 % 25 - 43 Peak grad, S 12.0 mm Hg ----- PW, ED (H) 1.1 cm 0.6 - 1.0 LVOT/AV, VTI ratio 0.54 ----- E', lat tiesha, TDI (L) 4.6 cm/sec >=10.0 OTTONIEL, VTI 1.70 cm^2 --- -- E/e', lat tiesha, 12 OTTONIEL, Vmax 1.61 cm^2 ----- TDI E', med tiesha, TDI (L) 5.8 cm/sec >=7.0 Mitral valve Value Ref E/e', med tiesha, 9 Peak E 0.54 m/sec ----- TDI Peak A 1.09 m/sec ----- E', avg, TDI 5.2 cm/sec Decel time 352 ms ----- E/e', avg, TDI 10 <=14 Peak E/A ratio 0.5 --- -- LVOT Value Ref Pulmonic valve Value Ref Diam, S 2.00 cm Peak v, S 0.66 m/sec ----- Area 3.1 cm^2 Peak grad, S 2.0 mm Hg ----- Peak yoon, S 0.9 m/sec VTI, S 21.0 cm Tricuspid valve Value Ref Mean grad, S 2 mm Hg TR peak v 2.4 m/sec <=2.8 SV 67 ml Peak RV-RA grad, S 23 mm Hg ----- SV/bsa 37 ml/m^2 Aortic root Value Ref Ventricular septum Value Ref Root diam 3.7 cm <4.0 IVS, ED (H) 1.4 cm 0.6 - 1.0 Ascending aorta Value Ref Right ventricle Value Ref AAo AP diam, S 3.6 cm ----- GLORIA, LAX 3.6 cm GLORIA minor ax, A4C (H) 4.6 cm 1.9 - 3.5 Aortic arch Value Ref mid Arch diam 2.0 cm ----- Pressure, S 26 mm Hg Decending aorta Value Ref Left atrium Value Ref Sariah peak yoon 0.68 m/sec ----- AP dim, ES 3.20 cm 3.00 - 4.00 Pulmonary artery Value Ref ML dim, A4C 4.3 cm Pressure, S 24.0 mm Hg ----- SI dim, A4C 4.9 cm Vol/bsa, ES, 1-p 32 ml/m^2 12 - 37 Inferior vena cava Value Ref A4C Diam 1.2 cm ----- Vol/bsa, ES, A/L 34 ml/m^2 16 - 34 Right atrium Value Ref SI dim, ES 4.9 cm 3.4 - 5.3 ML dim, ES, A4C 3.8 cm 2.6 - 4.4 SI dim, ES, A4C 4.9 cm 3.4 - 5.3 Estimated RAP 3 mm Hg Legend: (L) and (H) tamika values outside specified reference range. Prepared and electronically signed by Dieter Florentino MD 04/09/2019 15:59
--- NOTE | 2019-04-09 16:23 | PN ---
NEUROLOGICAL FOLLOWUP: DATE OF SERVICE: 04/09/19 HISTORY: He feels back to normal without any weakness or numbness today. He has no other complaints. MEDICATIONS: Include: 1. Norvasc 10 mg daily. 2. Aspirin 81 mg daily. 3. Plavix 75 mg daily. 4. Lovenox subcu. PHYSICAL EXAMINATION: Temperature 97.7, pulse 60, respirations 16, blood pressure 163/88. He is alert and oriented with normal speech and comprehension. Cranial nerves II through XII were intact. Motor exam revealed normal tone and strength. Chest: Clear. Cardiovascular: Regular rate and rhythm. Abdomen was soft. DIAGNOSTIC STUDIES/LAB DATA: His echo was pending. I reviewed his MRI scan and cervical spine. His MRI scan showed some white matter disease as well as small acute stroke high in the right parietal region. His cervical spine, I also reviewed the films and it did show cervical disk disease with some central canal stenosis, but no cord compression or deformation. His blood work included an LDL of 108, HDL of 60. Normal B12, folate. Normal CMP. Normal INR. CBC was normal other than MCV of 99. UA was negative. His carotid Doppler showed no significant hemodynamic stenosis. IMPRESSION AND PLAN: I discussed with Jermain and his that he has had small stroke and that was a reason for his leg weakness and that he is doing well now that he needs to be on aspirin and Plavix for a month and then a single antiplatelet therapy. I discussed that it is possible if this came from his heart such as atrial fibrillation, then the recommendation would be to be on an anticoagulant rather than aspirin or Plavix because it is more effective preventing further stroke and sometimes more prolonged monitoring would be needed such as optimally a loop recorder monitor, but Holter would be better than nothing. He did not want to pursue this and his LDL was high, but he treats himself with diet and strongly was opposed to statin recommended by the hospitalist and myself. He has no abnormalities on his serologies that would explain his peripheral neuropathy. I will be glad to see him as an outpatient and pursue further with nerve conduction studies if he wanted and further evaluation such as SPEP which has not been done and the hospitalist will discuss with the patient if he wants this in followup and confirm either way before discharge. He also has cervical disk disease, but I do not think it was causing symptoms yesterday. Thank you for sharing his case. [id number]/[facility] #: [id number] KETURAH
[2019-04-09] MEDS ORDERED: Clopidogrel TAB* 75 MG PO SCH (18:00)
== END 2019-04-09 19:00 | disposition home or self-care (01) | DRG 65 ==
LOC: ED 09:59 → MEDTELE 15:34 → EEVIPCON 15:34 → OBSVTOIN 17:57
PROVIDERS: ADMIT Internal Medicine; ATTEND Internal Medicine
DX: I63.9 Cerebral infarction, unspecified (principal); Q21.1 Atrial septal defect; M41.9 Scoliosis, unspecified; R53.1 Weakness; I10 Essential (primary) hypertension; R40.2362 Coma scale, best motor response, obeys commands, at arrival to emergency department; R40.2142 Coma scale, eyes open, spontaneous, at arrival to emergency department; R40.2252 Coma scale, best verbal response, oriented, at arrival to emergency department; R29.702 NIHSS score 2; R00.1 Bradycardia, unspecified; R26.9 Unspecified abnormalities of gait and mobility; G62.9 Polyneuropathy, unspecified; R41.0 Disorientation, unspecified; M50.30 Other cervical disc degeneration, unspecified cervical region; M48.02 Spinal stenosis, cervical region; Z87.891 Personal history of nicotine dependence; Z72.89 Other problems related to lifestyle; Z82.61 Family history of arthritis; Z79.82 Long term (current) use of aspirin
CPT/HCPCS: 36415; 70450; 70551; 72141; 80053; 80061; 81003; 82607; 82746; 83605; 84153; 84484; 85025; 85610; 86850; 86900; 86901; 93005; 93306; 93880; 93970; 99284; A9270-GY; G0103; G0378; G8978-GP-CI; G8979-GP-CI; G8980-GP-CI; J1650

== ENCOUNTER 2019-08-07 13:00 | Emergency (ER) | payer MEDICARE, BC ==
--- NOTE | 2019-08-07 13:42 | ED ---
Dizziness - HPI Summary HPI Summary: The patient is an 83 y/o male presenting to [facility] accompanied by and grandson with a chief complaint of dizziness this morning. He reports that in April 2019, he suffered from a TIA with admission after noticing that he had lower extremity weakness that resolved after two hours. At that time, he was placed on Plavix, Aspirin, and Amlodipine, which he stopped shortly after being discharged. He has been monitoring his BP at home with normal readings in the last few days. However, today he had an episode of dizziness after he woke up and was lying in bed for a while. He went to his PCP with concern, and he was advised to come here because of his elevated blood pressure. He endorses nausea that has since resolved. He denies any weakness, numbness, tingling, visual or auditory changes, head injury, neck stiffness, changes in ability to walk, SOB, CP, cough, congestion, abdominal pain, pain or burning with urination, or edema in the lower extremities. He states that the current episode is different than the TIA. He is still experiencing mild dizziness, but it has mostly resolved. He notes a lot of stress recently. PMHx: HLD. Former smoker, occasional EtOH, no substance use. Medications reviewed. Allergies noted. - History Of Current Complaint Chief Complaint: EDHypertension Stated Complaint: DIZZINESS PER PT Time Seen by Provider: 08/07/19 13:31 Hx Obtained From: Patient Onset/Duration: Still Present Timing: Hours Severity Initially: Moderate Severity Currently: Mild Character: Dizzy Aggravating Factor(s): Nothing Alleviating Factor(s): Nothing Associated Signs And Symptoms: Positive: Nausea. Negative: Chest Pain, SOB, Unsteady Gait, Visual Changes, Other: - weakness, numbness, tingling, auditory changes, head injury, neck stiffness, changes in ability to walk, cough, congestion, abdominal pain, pain or burning with urination, edema in the lower extremities - Allergies/Home Medications Allergies/Adverse Reactions: Allergies Allergy/AdvReac Type Severity Reaction Status Date / Time No Known Allergies Allergy Verified 04/08/19 10:11 PMH/Surg Hx/FS Hx/Imm Hx Endocrine/Hematology History: Denies: Hx Diabetes Cardiovascular History: Reports: Hx Hypercholesterolemia, Hx Hypertension Denies: Hx Pacemaker/ICD Sensory History: Denies: Hx Contacts or Glasses, Hx Hearing Aid Opthamlomology History: Denies: Hx Contacts or Glasses Neurological History: Reports: Hx Transient Ischemic Attacks (TIA) Psychiatric History: Denies: Hx Panic Disorder - Surgical History Surgical History: Yes Surgery Procedure, Year, and Place: right hip Infectious Disease History: No Infectious Disease History: Denies: History Other Infectious Disease, Traveled Outside the [place] in Last 30 Days - Family History Known Family History: Positive: Cardiac Disease - [place] grandfather age 58, Hypertension, Other - no family history related to present concern. - Social History Alcohol Use: Occasionally Hx Substance Use: No Substance Use Type: Reports: None Hx Tobacco Use: Yes Smoking Status (MU): Former Smoker Review of Systems Negative: Other - visual changes Negative: Other - congestion, auditory changes Negative: Chest Pain Negative: Shortness Of Breath, Cough Positive: Nausea. Negative: Abdominal Pain Negative: burning, dysuria Negative: Myalgia - neck stiffness, Edema Neurological: Other - dizziness; Negative: head injury, changes in ambulation Negative: Weakness, Paresthesia, Numbness All Other Systems Reviewed And Are Negative: Yes Physical Exam - Summary Physical Exam Summary: Constitutional: Well-developed, Well-nourished, Alert. (-) Distressed Skin: Warm, Dry HENT: Normocephalic; Atraumatic; Right ear has a lot of cerumen which is not impacted, Left ear has a lot of cerumen which is completely impacted Eyes: Conjunctiva normal Neck: Musculoskeletal ROM normal neck. (-) JVD, (-) Stridor, (-) Tracheal deviation Cardio: Rhythm regular, rate normal, Appreciable S1 and S2 but seemingly distant ; Intact distal pulses; The pedal pulses are 2+ and symmetric. Radial pulses are 2+ and symmetric. Femoral pulses equal bilaterally. Pulmonary/Chest wall: Effort normal. (-) Respiratory distress, (-) Wheezes, (-) Rales Abd: Soft, (-) tenderness, (-) Distension, (-) Guarding, (-) Rebound, (-) Pulsatile mass Musculoskeletal: (-) Edema Neuro: Alert, Oriented x3 Psych: Mood and affect Normal Triage Information Reviewed: Yes Vital Signs On Initial Exam: Initial Vitals Temp Pulse Resp BP Pulse Ox 98.2 F 56 14 195/118 96 08/07/19 13:08 08/07/19 13:08 08/07/19 13:08 08/07/19 13:08 08/07/19 13:08 Vital Signs Reviewed: Yes - Irving Coma Scale Best Eye Response: 4 - Spontaneous Best Motor Response: 6 - Obeys Commands Best Verbal Response: 5 - Oriented Coma Scale Total: 15 Procedures - Sedation Patient Received Moderate/Deep Sedation with Procedure: No Diagnostics - Vital Signs Vital Signs Temp Pulse Resp BP Pulse Ox 08/07/19 13:08 98.2 F 56 14 195/118 96 - Laboratory Result Diagrams: 08/07/19 16:06 08/07/19 16:06 Lab Statement: Any lab studies that have been ordered have been reviewed, and results considered in the medical decision making process. - CT Brain CT CT Interpretation Completed By: Radiologist Summary of CT Findings: Impression: No acute intracranial pathology. Chronic small vessel ischemic change. ED physician has reviewed this report. - EKG 1315 Cardiac Rate: Bradycardia - 55 BPM EKG Rhythm: Sinus Bradycardia Summary of EKG Findings: An EKG at 1315 reveals sinus bradycardia at 55 BPM, first degree AVB, inferior Q waves, motion artifact. No STEMI. ED physician has reviewed and interpreted this EKG. 1607 Cardiac Rate: Bradycardia - 52 BPM EKG Rhythm: Sinus Bradycardia Summary of EKG Findings: An EKG at 1607 reveals sinus bradycardia at 52 BPM, nonspecific ST, T wave abnormalities (old), first degree AVB (old). No STEMI. ED physician has reviewed and interpreted this EKG. Re-Evaluation - Re-Evaluation First Eval Re-Evaluation Time: 17:35 Comment: We discussed all results and plan for discharge. BP slightly elevated but patietn would like d/c home, and he is asymptomatic so plan for d/c continues, home meds prescribed for 10 days with all return parameters for stroke or hypertensive emergency given, will follow, plan for pcp follow up tomorrow Dizzy Course/Dx - Course Course Of Treatment: 83 y/o male who has a history of TIA in April 2019 presenting with dizziness onset this morning while lying in bed which has not yet resolved but has significantly improved. He was nauseous initially but denies any associated symptoms now. Current episode is different than previous TIA, denies neurological symptoms. He was seen at his PCPs this morning and was advised to come here for HTN, which the patient states he hasnt taken any medications for since the TIA. Physical exam is significant for no pulsatile mass, femoral pulses equal bilaterally, equal and symmetric pulses in the upper extremities, appreciable S1 and S2 but seemingly distant, a lot of cerumen in the right ear but not impacted, and completely impacted cerumen in the left ear. Since patient has not been medication-complaint following his TIA this past fall, he will be administered Plavix, 81mg Aspirin, and 10mg Amlodipine at this time as this is what he is supposed to take. He will also be given Atorvastatin because the patient is also supposed to take a statin, but he stopped taking that as well. A large amount of cerumen was removed from the left ear. An EKG at 1315 reveals sinus bradycardia at 55 BPM, first degree AVB ( old), inferior Q waves, motion artifact, no STEMI. Brain CT reveals chronic microvascular disease consistent with age and TIA history. An EKG at 1607 reveals sinus bradycardia at 52 BPM, nonspecific ST, T wave abnormalities (old) , first degree AVB (old), no STEMI. Patient has been asymptomatic since arrival , and he seems safe for discharge at this time. His BP is in the 170s/80s, but the patient feels alright to be discharged home. He will be given rx for Amlodipine, Aspirin, Lipitor, and Plavix. We discussed all return parameters for any recurrent hypertensive emergency or stroke, which the patients will look for. He will follow up with his PCP tomorrow. Patient and agreeable with plan. - Diagnoses Provider Diagnoses: Hypertension, uncontrolled Discharge ED - Sign-Out/Discharge Documenting (check all that apply): Patient Departure - Patient will be discharged home. - Discharge Plan Condition: Stable Disposition: HOME Prescriptions: amLODIPine TAB* [Norvasc 5 mg TAB*] 5 mg PO BID 15 Days #30 tab Aspirin 81 mg CHEW TAB* 81 mg PO DAILY 15 Days #15 tab.chew Atorvastatin* [Lipitor 10 MG*] 10 mg PO BEDTIME 15 Days #15 tab Clopidogrel TAB* [Plavix TAB*] 75 mg PO DAILY 15 Days #15 tab Patient Education Materials: Hypertension in the Older Adult (ED) Referrals: [facility] [Outside] - 3 Days Additional Instructions: Please take medications as prescribed. Follow up with your primary care provider in 2-3 days. Return to the emergency department for any new or worsening symptoms. - Billing Disposition and Condition Condition: STABLE Disposition: Home - Attestation Statements Document Initiated by Stephani: Yes Documenting Scribe: Patricia Gongora Provider For Whom Stephani is Documenting (Include Credential): Dr. Ricci Melendez MD Scribe Attestation: Patricia Dixon scribed for Dr. Ricci Melendez MD on 08/07/19 at 1909. Scribe Documentation Reviewed: Yes Provider Attestation: The documentation as recorded by the Patricia arizmendi accurately reflects the service I personally performed and the decisions made by me, Dr. Ricci Melendez MD Status of Scribe Document: Viewed
[2019-08-07] MEDS ORDERED: amLODIPine TAB* 5 MG PO ONE (14:24)
[2019-08-07] MEDS ORDERED: Clopidogrel TAB* 75 MG PO ONE (14:32)
[2019-08-07] MEDS ORDERED: Aspirin 81 mg CHEW TAB* 81 MG TAB.CHEW PO ONE (14:32)
[2019-08-07] MEDS ORDERED: Atorvastatin* 10 MG TAB PO ONE (14:33)
[2019-08-07 16:18] LABS: ABS Lymphocytes 0.9 10^3/ul (1.0-4.8); ABS Monocytes 0.2 10^3/ul (0-0.8); ABS Neutrophils 5.9 10^3/ul (1.5-7.7); Eosinophil % 0.1 %; Hematocrit 43 % (42-52); Hemoglobin 14.3 g/dL (14.0-18.0); Lymphocyte % 13.3 %; Mean Corpuscular HGB Conc 34 g/dL (31-36); Mean Corpuscular Hemoglobin 33 pg (27-31); Mean Corpuscular Volume 99 fL (80-94); Mean Platelet Volume 8.5 fL (7.4-10.4); Nucleated Red Blood Cells % 0.1; Platelet Count 230 10^3/uL (150-450); Red Cell Distribution Width 13 % (10-15); White Blood Count 7.1 10^3/uL (3.5-10.8)
[2019-08-07 16:33] LABS: Albumin 3.8 g/dL (3.2-5.2); Albumin/Globulin Ratio 1.5 (1-3); BUN/Creatinine Ratio 13.9 (8-20); EGFR African American 125.5 (>60); EGFR Non-African American 103.8 (>60); Globulin 2.6 g/dL (2-4); Indirect Bilirubin 0.7 mg/dL (0.3-1.0); Potassium 3.9 mmol/L (3.5-5.0); Total Bilirubin 0.8 mg/dL (0.2-1.0); Total Protein 6.4 g/dL (6.4-8.9)
[2019-08-07 16:34] LABS: Troponin I 0.01 ng/mL (<0.03)
[2019-08-07 16:35] LABS: INR 1.01 (0.82-1.09)
[2019-08-07 17:44] VITALS: BP 179/90
== END 2019-08-07 18:08 | disposition home or self-care (01) ==
LOC: ED 13:00
DX: I10 Essential (primary) hypertension (principal); E78.5 Hyperlipidemia, unspecified; E78.00 Pure hypercholesterolemia, unspecified; Z86.73 Personal history of transient ischemic attack (TIA), and cerebral infarction without residual deficits; Z87.891 Personal history of nicotine dependence
CPT/HCPCS: 36415; 70450; 80048; 80076; 84484; 85025; 85610; 93005; 99283; A9270-GY